=== PATIENT | male | born 1990 | race African-American/Black ===

== ENCOUNTER 2020-03-27 09:39 | Emergency (ER) | payer SELFPAY ==
[2020-03-27] MEDS ORDERED: Lidocaine 1% with EPINEPHrine 1:100,000 10 ML MDV INJECT ONE (10:07)
[2020-03-27] MEDS ORDERED: Lidocaine/EPINEPHrine/Tetracaine Soln 1 ML TOP ONE (10:07)
--- NOTE | 2020-03-27 11:11 | EDM.PDOC ---
ED HPI GENERAL MEDICAL PROBLEM - General Chief Complaint: Skin Complaint Stated Complaint: L ARMPIT SKIN COMPLAINT Time Seen by Provider: 03/27/20 09:45 Source of Information: Reports: Patient History Limitations: Reports: No Limitations - History of Present Illness INITIAL COMMENTS - FREE TEXT/NARRATIVE: The patient presents with left axillary pain and swelling. He has had abscesses before. He has no fever or chills. Onset: Gradual Duration: Day(s): Location: Reports: Upper Extremity, Left (axillary) Quality: Reports: Sharp Severity: Moderate Improves with: Reports: None Worsens with: Reports: None Associated Symptoms: Reports: No Other Symptoms Left Axillary Pain Score (Numeric/FACES): 6 - Related Data Allergies Allergy/AdvReac Type Severity Reaction Status Date / Time No Known Allergies Allergy Verified 03/27/20 09:51 Home Meds: Home Meds cephALEXin [Keflex] 500 mg PO QID #28 capsule 03/27/20 [Rx] Past Medical History - Past Health History Medical/Surgical History: Denies Medical/Surgical History Social & Family History - Tobacco Use Smoking Status *Q: Never Smoker - Alcohol Use Days Per Week of Alcohol Use: 7 Number of Drinks Per Day: 3 Total Drinks Per Week: 21 - Recreational Drug Use Recreational Drug Use: No ED ROS GENERAL - Review of Systems Review Of Systems: See Below Constitutional: Reports: No Symptoms HEENT: Reports: No Symptoms Respiratory: Reports: No Symptoms Cardiovascular: Reports: No Symptoms Endocrine: Reports: No Symptoms GI/Abdominal: Reports: No Symptoms : Reports: No Symptoms Musculoskeletal: Reports: Other (Left axillar) ED EXAM, SKIN/RASH Exam: See Below Exam Limited By: No Limitations General Appearance: Alert, No Apparent Distress Ears: Normal External Exam Nose: Normal Inspection Head: Atraumatic, Normocephalic Neck: Normal Inspection Respiratory/Chest: No Respiratory Distress Extremities: Other (Pain upon palpation with edema to the left axilla) ED SKIN PROCEDURES - I&D Site: Left axilla Skin Prep: Other (Chlorprep) Local Anesthesia: Lidocaine: 1% with EPI (and LET) Local Anesthetic Volume: 1cc Area Incised With: 11 Blade Drainage: Purulent, Bloody, Small Amount Probed to Break Up Loculations: Yes Complications: No Course - Vital Signs Last Recorded V/S: Last Vital Signs Temp 98.7 F 03/27/20 09:52 Pulse 90 03/27/20 09:52 Resp 16 03/27/20 09:52 BP 167/109 H 03/27/20 09:52 Pulse Ox 97 03/27/20 09:52 - Orders/Labs/Meds Meds: Medications Discontinued Medications Generic Name Dose Route Start Last Admin Trade Name Diane PRN Reason Stop Dose Admin Lidocaine/Epinephrine 10 ml 03/27/20 10:07 03/27/20 10:13 Xylocaine 1% With Epinephrine 1:100,000 INJECT 03/27/20 10:08 10 ml ONETIME ONE Administration Lidocaine/Tetracaine 1 ml 03/27/20 10:07 03/27/20 10:13 Let Soln TOP 03/27/20 10:08 1 ml ONETIME ONE Administration - Re-Assessments/Exams Free Text/Narrative Re-Assessment/Exam: 03/27/20 11:09 I used an 11 blade to open up the abscess. There was mild output. I will get him on some keflex. Departure - Departure Time of Disposition: 11:15 Disposition: Home, Self-Care 01 Condition: Good Clinical Impression: Abscess - Discharge Information *PRESCRIPTION DRUG MONITORING PROGRAM REVIEWED*: Not Applicable *COPY OF PRESCRIPTION DRUG MONITORING REPORT IN PATIENT ERIC: Not Applicable Prescriptions: cephALEXin [Keflex] 500 mg PO QID #28 capsule Referrals: PCP,None [Primary Care Provider] - Forms: ED Department Discharge, ED Return to Work/School Form Additional Instructions: Clean the wound with warm soapy water 2 times per day and apply antibiotic ointment after. Put warm compresses on the wound 3 times per day for 5 days. Take the keflex 4 times per day for 7 days. Please return if you are worse. Sepsis Event Note (ED) - Evaluation Sepsis Screening Result: No Definite Risk - Focused Exam Vital Signs: Vital Signs Temp Pulse Resp BP Pulse Ox 03/27/20 09:52 98.7 F 90 16 167/109 H 97
== END 2020-03-27 11:15 | disposition home or self-care (01) ==
LOC: JD.ED 09:39
DX: L02.412 Cutaneous abscess of left axilla (principal)
CPT/HCPCS: 10060; 99283; 99283-25